=== PATIENT | male | born 1955 | race Caucasian/White ===

== ENCOUNTER 2017-09-15 15:59 | Inpatient (IN) | payer BC, MEDICARE ==
[~2017-09-15] VITALS: Ht 177.8 cm; Wt 66.2 kg
--- NOTE | 2017-09-15 16:50 | EKG ---
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
[2017-09-15 17:14] LABS: BASO % 0 % (0-3); EOS # 0.2 x10^3/uL (0.0-0.7); EOS % 2 % (0-3); HEMATOCRIT 42.3 % (39.0-53.0); HEMOGLOBIN 14.3 g/dL (13.0-17.5); LYMPH # 1.1 x10^3/uL (1.0-4.8); LYMPH % 13 % (24-48); MEAN CORPUSCULAR HEMOGLOBIN 29 pg (25-35); MEAN CORPUSCULAR HGB CONC 34 g/dL (31-37); MEAN CORPUSCULAR VOLUME 86 fL (79-100); MONO # 0.6 x10^3/uL (0.0-1.1); MONO % 7 % (0-9); NEUT # 6.8 x10^3uL (1.8-7.7); NEUT % 77 % (31-73); PLATELET COUNT 264 x10^3/uL (140-400); RED BLOOD COUNT 4.92 x10^6/uL (4.30-5.70); RED CELL DISTRIBUTION WIDTH 13.9 % (11.5-14.5); WHITE BLOOD COUNT 8.7 x10^3/uL (4.0-11.0)
[2017-09-15 17:27] LABS: ALBUMIN 4.1 g/dL (3.4-5.0); ALBUMIN/GLOBULIN RATIO 1.2 (1.0-1.7); CALCIUM 8.7 mg/dL (8.5-10.1); CREATININE 1.1 mg/dL (0.7-1.3); GFR 68.3; MAGNESIUM 2.3 mg/dL (1.8-2.4); TOTAL BILIRUBIN 0.4 mg/dL (0.2-1.0); TOTAL PROTEIN 7.4 g/dL (6.4-8.2)
[2017-09-15 17:43] LABS: BACTERIA,URINE 0 /HPF (0-FEW); BILIRUBIN,URINE NEG (NEG); CLARITY,URINE CLEAR; COLOR,URINE YELLOW; GLUCOSE,URINE NEG (NEG); NITRITE,URINE NEG (NEG); RBC,URINE OCC /HPF (0-2); SQUAMOUS EPITHELIAL CELL,UR FEW /LPF; UROBILINOGEN,URINE 1 mg/dL (0.2 mg/dL); WBC,URINE OCC /HPF (0-4)
--- NOTE | 2017-09-15 18:08 | PHYS DOC ---
Past History Past Medical History: Anxiety, Other Past Surgical History: Tonsillectomy Alcohol Use: None Drug Use: None Adult General Chief Complaint Chief Complaint: PSYCH EVALUATION HPI HPI Patient is a 62 year old male who presents with psychiatric problem. Patient has history of progressive aphasia and Alzheimer's dementia, recently with increased aggressive behaviors towards self. Repeatedly hitting his head with his own hands. Requiring significant intervention and monitoring on a one-to- one basis at memory care unit. Recent hospital admissions to [facility]. Here with today who is giving history. Review of Systems Review of Systems Constitutional: Denies fever or chills Eyes: Denies change in visual acuity HENT: Denies nasal congestion or sore throat Respiratory: Denies cough or shortness of breath Cardiovascular: Denies chest pain or edema GI: Denies abdominal pain, nausea, vomiting, bloody stools or diarrhea : Denies dysuria or hematuria Musculoskeletal: Denies back pain or joint pain Integument: Denies rash or skin lesions Neurologic: Denies headache, focal weakness or sensory changes All other systems were reviewed and found to be within normal limits, except as documented in this note. Physical Exam Physical Exam Constitutional: Well developed, well nourished, no acute distress, non-toxic appearance. HENT: Normocephalic, atraumatic, bilateral external ears normal, oropharynx moist, nose normal. Eyes: PERRLA, EOMI, conjunctiva normal, no discharge. Neck: supple, no stridor. Cardiovascular: RRR, no murmurs, no edema. Lungs & Thorax: LCTAB, no wheezing, no respiratory distress. Abdomen: soft, nontender, nondistended. Skin: Warm, dry, no erythema, no rash. Back: No tenderness. Extremities: No tenderness, no edema. Neurologic: Alert, moves all extremities, answers some questions. Psychologic: Affect normal, judgement normal, mood normal. Current Patient Data Vital Signs Vital Signs Date Time Temp Pulse Resp B/P (MAP) Pulse Ox O2 Delivery O2 Flow Rate FiO2 09/15/17 16:32 97.8 75 22 99 Room Air Lab Results Laboratory Tests Test 09/15/17 16:50 White Blood Count 8.7 x10^3/uL (4.0-11.0) Red Blood Count 4.92 x10^6/uL (4.30-5.70) Hemoglobin 14.3 g/dL (13.0-17.5) Hematocrit 42.3 % (39.0-53.0) Mean Corpuscular Volume 86 fL (79-100) Mean Corpuscular Hemoglobin 29 pg (25-35) Mean Corpuscular Hemoglobin Concent 34 g/dL (31-37) Red Cell Distribution Width 13.9 % (11.5-14.5) Platelet Count 264 x10^3/uL (140-400) Neutrophils (%) (Auto) 77 % (31-73) H Lymphocytes (%) (Auto) 13 % (24-48) L Monocytes (%) (Auto) 7 % (0-9) Eosinophils (%) (Auto) 2 % (0-3) Basophils (%) (Auto) 0 % (0-3) Neutrophils # (Auto) 6.8 x10^3uL (1.8-7.7) Lymphocytes # (Auto) 1.1 x10^3/uL (1.0-4.8) Monocytes # (Auto) 0.6 x10^3/uL (0.0-1.1) Eosinophils # (Auto) 0.2 x10^3/uL (0.0-0.7) Basophils # (Auto) 0.0 x10^3/uL (0.0-0.2) Urine Collection Type Unknown Urine Color Yellow Urine Clarity Clear Urine pH 6.5 Urine Specific [place] 1.025 Urine Protein Neg (NEG-TRACE) Urine Glucose (UA) Neg mg/dL (NEG) Urine Ketones (Stick) Neg mg/dL (NEG) Urine Blood Neg (NEG) Urine Nitrite Neg (NEG) Urine Bilirubin Neg (NEG) Urine Urobilinogen Dipstick 1 mg/dL (0.2 mg/dL) Urine Leukocyte Esterase Neg (NEG) Urine RBC Occ /HPF (0-2) Urine WBC Occ /HPF (0-4) Urine Squamous Epithelial Cells Few /LPF Urine Bacteria 0 /HPF (0-FEW) Urine Mucus Mod /LPF Sodium Level 143 mmol/L (136-145) Potassium Level 4.0 mmol/L (3.5-5.1) Chloride Level 104 mmol/L (98-107) Carbon Dioxide Level 32 mmol/L (21-32) Anion Gap 7 (6-14) Blood Urea Nitrogen 13 mg/dL (8-26) Creatinine 1.1 mg/dL (0.7-1.3) Estimated GFR (Cockcroft-Gault) 68.3 BUN/Creatinine Ratio 12 (6-20) Glucose Level 90 mg/dL (70-99) Calcium Level 8.7 mg/dL (8.5-10.1) Magnesium Level 2.3 mg/dL (1.8-2.4) Total Bilirubin 0.4 mg/dL (0.2-1.0) Aspartate Amino Transferase (AST) 18 U/L (15-37) Alanine Aminotransferase (ALT) 19 U/L (16-63) Alkaline Phosphatase 91 U/L (46-116) Total Protein 7.4 g/dL (6.4-8.2) Albumin 4.1 g/dL (3.4-5.0) Albumin/Globulin Ratio 1.2 (1.0-1.7) EKG EKG Interpreted by me: Normal sinus rhythm rate 74, no acute ST or T wave changes, normal intervals, no ectopy.[] Radiology/Procedures Radiology/Procedures [] Course & Med Decision Making Course & Med Decision Making Pertinent Labs and Imaging studies reviewed. (See chart for details) The patient presents with psych problem. Medically stable, no acute complaints. Labs as above. [facility] accepted for geriatric psych admission. Patient to be transferred to geriatric unit. The patient is in stable condition at this time. [] Dragon Disclaimer Dragon Disclaimer This electronic medical record was generated, in whole or in part, using a voice recognition dictation system. Departure Departure: Impression: Primary Impression: Dementia with aggressive behavior Disposition: 65 XFER TO PSYCH HOSP/UNIT Condition: GUARDED Referrals: KHRIS FERMIN MD (PCP) JOEY THOMAS MD Sep 15, 2017 18:08
--- NOTE | 2017-09-15 19:56 | PDOC ---
Exam Note: Gerhard Note: Please also refer to the separate dictated note~for this date of service dictated separately.~Patient seen individually. Discussed the patient with Nursing staff reviewed the chart.~Reviewed interim history and current functioning. Reviewed vital signs,~Labs/ Radiology~and current medications noted below. Continue current treatment with the changes noted in the dictated addendum note Assessment: Vital Signs: Vital Signs Date Time Temp Pulse Resp B/P (MAP) Pulse Ox O2 Delivery O2 Flow Rate FiO2 09/15/17 19:30 78 20 120/78 (92) 97 Room Air 09/15/17 16:32 97.8 Labs: Laboratory Tests Test 09/15/17 16:50 White Blood Count 8.7 x10^3/uL (4.0-11.0) Red Blood Count 4.92 x10^6/uL (4.30-5.70) Hemoglobin 14.3 g/dL (13.0-17.5) Hematocrit 42.3 % (39.0-53.0) Mean Corpuscular Volume 86 fL (79-100) Mean Corpuscular Hemoglobin 29 pg (25-35) Mean Corpuscular Hemoglobin Concent 34 g/dL (31-37) Red Cell Distribution Width 13.9 % (11.5-14.5) Platelet Count 264 x10^3/uL (140-400) Neutrophils (%) (Auto) 77 % (31-73) H Lymphocytes (%) (Auto) 13 % (24-48) L Monocytes (%) (Auto) 7 % (0-9) Eosinophils (%) (Auto) 2 % (0-3) Basophils (%) (Auto) 0 % (0-3) Neutrophils # (Auto) 6.8 x10^3uL (1.8-7.7) Lymphocytes # (Auto) 1.1 x10^3/uL (1.0-4.8) Monocytes # (Auto) 0.6 x10^3/uL (0.0-1.1) Eosinophils # (Auto) 0.2 x10^3/uL (0.0-0.7) Basophils # (Auto) 0.0 x10^3/uL (0.0-0.2) Urine Collection Type Unknown Urine Color Yellow Urine Clarity Clear Urine pH 6.5 Urine Specific [place] 1.025 Urine Protein Neg (NEG-TRACE) Urine Glucose (UA) Neg mg/dL (NEG) Urine Ketones (Stick) Neg mg/dL (NEG) Urine Blood Neg (NEG) Urine Nitrite Neg (NEG) Urine Bilirubin Neg (NEG) Urine Urobilinogen Dipstick 1 mg/dL (0.2 mg/dL) Urine Leukocyte Esterase Neg (NEG) Urine RBC Occ /HPF (0-2) Urine WBC Occ /HPF (0-4) Urine Squamous Epithelial Cells Few /LPF Urine Bacteria 0 /HPF (0-FEW) Urine Mucus Mod /LPF Sodium Level 143 mmol/L (136-145) Potassium Level 4.0 mmol/L (3.5-5.1) Chloride Level 104 mmol/L (98-107) Carbon Dioxide Level 32 mmol/L (21-32) Anion Gap 7 (6-14) Blood Urea Nitrogen 13 mg/dL (8-26) Creatinine 1.1 mg/dL (0.7-1.3) Estimated GFR (Cockcroft-Gault) 68.3 BUN/Creatinine Ratio 12 (6-20) Glucose Level 90 mg/dL (70-99) Calcium Level 8.7 mg/dL (8.5-10.1) Magnesium Level 2.3 mg/dL (1.8-2.4) Total Bilirubin 0.4 mg/dL (0.2-1.0) Aspartate Amino Transferase (AST) 18 U/L (15-37) Alanine Aminotransferase (ALT) 19 U/L (16-63) Alkaline Phosphatase 91 U/L (46-116) Total Protein 7.4 g/dL (6.4-8.2) Albumin 4.1 g/dL (3.4-5.0) Albumin/Globulin Ratio 1.2 (1.0-1.7) Current Medications: I have reviewed the current psychotropics carefully including drug interactions. Risk benefit ratio favors no change other than as noted in my dictated progress note. Diagnosis: Problems: (1) Dementia with aggressive behavior KARSON DOWELL MD Sep 15, 2017 19:56
[2017-09-15] MEDS ORDERED: QUET400T4 PO (20:07)
[2017-09-15] MEDS ORDERED: SERT20OR PO (20:07)
[2017-09-15] MEDS ORDERED: TRAZ50TA15 PO ×3 (20:07)
[2017-09-15] MEDS ORDERED: QUET50TA5 PO (20:07)
[2017-09-15] MEDS ORDERED: traZODone 50 MG TABLET. PO PRN (20:15)
[2017-09-15] MEDS: traZODone 50 MG TABLET. PO SCH (21:06)
[2017-09-15] MEDS: QUEtiapine 100 MG TABLET. PO SCH (21:06)
[2017-09-15 22:46] VITALS: BP 128/67
[2017-09-16 06:08] VITALS: BP 98/49
[2017-09-16] MEDS ORDERED: ACETAMINOPHEN 325 MG TABLET PO PRN (08:00)
[2017-09-16] MEDS ORDERED: MAG HYDROX/AL HYDROX/SIMETH 30 ML ORAL.SUSP PO PRN (08:00)
[2017-09-16] MEDS: QUEtiapine 50 MG TABLET. PO SCH (08:00)
[2017-09-16] MEDS ORDERED: MAGNESIUM HYDROXIDE 2,400 MG/30 ML ORAL.SUSP. PO PRN (08:00)
[2017-09-16] MEDS: traZODone 50 MG TABLET. PO SCH ×4 (08:02→19:08)
[2017-09-16] MEDS ORDERED: SERTRALINE 100 MG TABLET. PO SCH (09:00)
[2017-09-16] MEDS: hydrOXYzine PAMOATE 25 MG CAPSULE PO PRN (09:43)
[2017-09-16 14:17] LABS: THYROID STIM HORMONE (TSH) 1.39 uIU/mL (0.358-3.740)
--- NOTE | 2017-09-16 15:01 | HP ---
ADMIT DATE: 09/15/2017 REASON FOR ADMISSION TO SENIOR BEHAVIORAL UNIT: This is a 62-year-old male who was just hospitalized on the Adult Psych Unit where he was sent from [facility]. He has been self-destructive, hitting his head, very anxious, tried to smother himself with a pillow, somewhat fixated with his bowels and his bladder and just is not able to process information the people are giving him. At the Adult Psych, they did try to adjust his trazodone, which was not effective. Apparently, also the nursing facility where he was going to go was not going to take him. PAST MEDICAL HISTORY: He has a cholesteatoma, depression, H. pylori, hallucinations, memory loss, high cholesterol. He is carrying a diagnosis of Alzheimer's dementia; logopenic variant; self-harming behavior; expressive and receptive aphasia. He had an MRI showing moderate atrophy in the frontotemporal lobes with a focal area of FLAIR the lateral right temporal lobe. Neurology felt like this was not significant. HOME MEDICATIONS: Reviewed. His current meds include lorazepam, quetiapine, Zoloft and trazodone. SOCIAL HISTORY: . No children. He has a Master's in health management and a bachelor's in accounting. 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 Diagnosis of Alzheimer's this is from I believe 2007. REVIEW OF SYSTEMS: The patient unable to answer questions. OBJECTIVE: VITAL SIGNS: Blood pressure 98/49, temperature 99, pulse 90, respirations 18, pulse ox 98% on room air. Height 70 inches, weight 146 pounds. GENERAL: A 62-year-old, in no acute distress. The patient is constantly talking. He is really very restless and unable to relax. He sits very briefly and then has been seen seeing pacing on the unit. HEENT: His hearing is normal. His eyes are clear. I could not assess his vision. When I held up at my hands, he said there were 7 fingers. Nose is patent. Throat clear. Tongue midline. NECK: Supple. LUNGS: Clear. CARDIOVASCULAR: Mildly tachycardic, regular rhythm and rate. ABDOMEN: Soft, nontender. EXTREMITIES: Without edema. NEUROLOGIC: Mental state, speech is word salad. Mental status is confused, cannot express himself and does not appear to be able to comprehend what words that are being spoken to him. Seems quite obsessed with his bowels and his bladder. LABORATORY DATA: Unremarkable. Chemistry unremarkable. Urinalysis is normal. Other studies are pending. IMAGING: KUB done because concerns about his bowel has not been overread but did not notice a whole lot of stool there. ASSESSMENT: 1. Alzheimer dementia, like logopenic variant, with self-harming behavior and expressive and receptive aphasia. 2. Depression. 3. History of hallucinations and memory loss. 4. Hypercholesterolemia. PLAN: Follow along with Dr. Boykin. Treat his medical conditions and we will treat his constipation if the KUB was read out as such. ZENAIDA WARD DO DR: SERENA/zia JOB#: [id number] / [id number]
--- NOTE | 2017-09-16 15:01 | RAD ---
KUB, 09/16/2017: History: Constipation. There is is gas and stool in scattered portions of the colon a nonspecific pattern. There is no evidence of organomegaly. Lower pelvic calcifications are probably phleboliths. IMPRESSION: No acute abdominal abnormality is detected.
[2017-09-16 16:29] VITALS: BP 134/74
[2017-09-16] MEDS: QUEtiapine 100 MG TABLET. PO SCH (19:08)
--- NOTE | 2017-09-16 19:57 | PDOC ---
Exam Note: Gerhard Note: Please also refer to the separate dictated note~for this date of service dictated separately.~Patient seen individually. Discussed the patient with Nursing staff reviewed the chart.~Reviewed interim history and current functioning. Reviewed vital signs,~Labs/ Radiology~and current medications noted below. Continue current treatment with the changes noted in the dictated addendum note Assessment: Vital Signs: Vital Signs Date Time Temp Pulse Resp B/P (MAP) Pulse Ox O2 Delivery O2 Flow Rate FiO2 09/16/17 16:29 98.4 96 18 134/74 (94) 97 09/15/17 22:46 Room Air I&O Intake and Output 09/16/17 07:00 Intake Total 240 ml Balance 240 ml Intake Oral 240 ml Labs: Laboratory Tests Test 09/15/17 21:15 Iron Level 63 ug/dL (65-175) L Total Iron Binding Capacity 271 ug/dL (250-450) Iron Saturation 23 % (15-34) Vitamin B12 Level 593 pg/mL (247-911) 25-Hydroxy Vitamin D Total 18.9 ng/mL (30-100) L Current Medications: Meds: Current Medications Quetiapine Fumarate (SEROquel) 50 mg DAILY PO Last administered on 09/16/17at 08 :00; Start 09/16/17 at 09:00 Sertraline HCl (Zoloft) 100 mg DAILY PO Last administered on 09/16/17at 08:02; Start 09/16/17 at 09:00; Stop 09/16/17 at 19:21; Status DC Trazodone HCl (Desyrel) 25 mg TIDWMEALS PO Last administered on 09/16/17at 17:17 ; Start 09/16/17 at 08:00 Trazodone HCl (Desyrel) 50 mg PRN QHS PRN PO INSOMNIA; Start 09/15/17 at 20:15 Trazodone HCl (Desyrel) 50 mg QHS PO Last administered on 09/16/17at 19:08; Start 09/15/17 at 21:00 Quetiapine Fumarate (SEROquel) 400 mg HS PO Last administered on 09/16/17at 19: 08; Start 09/15/17 at 21:00 Olanzapine (ZyPREXA ZYDIS) 2.5 mg PRN Q2HR PRN PO PSYCHOSIS Last administered on 09/16/17at 08:26; Start 09/15/17 at 21:00 Hydroxyzine Pamoate (Vistaril) 25 mg PRN Q2HR PRN PO Anxiety/Agitation Last administered on 09/16/17at 09:43; Start 09/15/17 at 22:00 Al Hydroxide/Mg Hydroxide (Mylanta Plus Xs) 30 ml PRN Q2HR PRN PO DYSPEPSIA; Start 09/16/17 at 08:00 Magnesium Hydroxide (Milk Of Magnesia) 2,400 mg PRN DAILY PRN PO CONSTIPATION Last administered on 09/16/17at 08:03; Start 09/16/17 at 08:00 Acetaminophen (Tylenol) 650 mg PRN Q6HRS PRN PO PAIN / TEMP; Start 09/16/17 at 08:00 Fluvoxamine Maleate (Luvox) 25 mg HS PO ; Start 09/16/17 at 21:00; Stop at 00:00 Fluvoxamine Maleate (Luvox) 50 mg HS PO ; Start 09/18/17 at 21:00 Active Scripts Active Reported Trazodone Hcl 50 Mg Tablet 50 Mg PO PRN QHS PRN Trazodone Hcl 50 Mg Tablet 50 Mg PO QHS Trazodone Hcl 50 Mg Tablet 25 Mg PO TIDWMEALS Seroquel (Quetiapine Fumarate) 400 Mg Tablet 400 Mg PO QHS Seroquel (Quetiapine Fumarate) 50 Mg Tablet 50 Mg PO DAILY I have reviewed the current psychotropics carefully including drug interactions. Risk benefit ratio favors no change other than as noted in my dictated progress note. Diagnosis: Problems: (1) Dementia with aggressive behavior (2) Anxiety disorder (3) Dementia in Alzheimer's disease with delusions (4) Dementia in Alzheimer's disease with depression (5) Dementia, vascular, with delusions (6) Dementia, vascular, with depression (7) Impulse control disorder KARSON DOWELL MD Sep 16, 2017 19:57
[2017-09-16 20:09] LABS: T3 TOTAL 77 ng/dL (71-180); THYROXINE 4.9 ug/dL (4.5-12.0)
[2017-09-17 05:46] VITALS: BP 108/58
[2017-09-17] MEDS: QUEtiapine 50 MG TABLET. PO SCH (08:06)
[2017-09-17] MEDS: traZODone 50 MG TABLET. PO SCH ×4 (08:06→19:46)
--- NOTE | 2017-09-17 12:09 | HP ---
ADMIT DATE: 09/16/2017 This is a late entry for 09/16/2017 and covers elements not covered in my initial note of 09/16/2017. I with the patient evening of 09/16/2017 and had a very lengthy telephone conversation with the patient's , Adeline [phone] to gather background history, review of all his past psychotropics, details of his recent hospitalization on psychiatry service at the [facility], treatment recommendations and expectations prognosis at great length. IDENTIFYING DATA: The patient is a 62-year-old male who is referred to us from [facility] by Dr. Casey Castillo, his primary care physician, and Dr. Reeves, psychiatrist on account of worsening confusion, marked psychotic symptoms, believing that his hands are not his and that his right hand is called Chad and left is called Mario and they are beating him up. Reportedly, the patient will then punch himself in the face. He attempted to smother himself with a pillow. He was recently an inpatient at Psychiatry, has failed all of this, was at [facility] just very briefly before being referred to us. CHIEF COMPLAINT: "No" The patient is extremely disorganized, confused, unable to give any relevant history." HISTORY OF PRESENT ILLNESS: The patient has a history of early onset Alzheimer's with delusion, depression, behavioral disturbance. Reportedly, has been tried on various psychotropics including various antipsychotics, scheduled trazodone and currently is on a combination of Seroquel, scheduled trazodone, Zoloft and none of this is effective. He is extremely psychotic, agitated, hits and slaps himself, unmanageable at the facility. No clear history of bipolar disorder. No active suicidal or homicidal ideation. PAST PSYCHIATRIC HISTORY: As above. PAST MEDICAL HISTORY: In addition to early onset Alzheimer's, has a history of primary progressive aphasia, H. pylori infection, hyperlipidemia. Diet: Regular. Accu-Cheks: None. Takes his medications whole. Ambulates independently. UA negative on 09/15/2017. CODE STATUS: DNR. DRUG ALLERGIES: Negative. CURRENT PSYCHOTROPICS: Seroquel 50 mg daily, 400 mg at bedtime; trazodone 25 mg t.i.d. with meals, 50 mg at bedtime, may repeat x 1 for insomnia; Zoloft 100 mg a day, Zyprexa p.r.n., Atarax p.r.n. FAMILY HISTORY: Positive for early onset Alzheimer's. SOCIAL HISTORY: The patient is . His is extremely supportive and knowledgeable about his care. No alcohol or drug abuse, physical, sexual or elder abuse history is noted. Not known to be a perpetrator. MENTAL STATUS EXAMINATION: The patient was seen individually evening of 09/16/2017, is oriented to himself, rambling in his speech, hitting himself in the head at times, quite compulsive, obsessive at times, delusional, psychotic. Insight, judgment, recent and remote memory, attention, concentration, fund of knowledge poor, consistent with his diagnosis. LABORATORY DATA: Major neurocognitive disorder, Alzheimer, vascular with depression, delusion, behavioral disturbance; anxiety disorder, unspecified; impulse control disorder, unspecified. Rest as above. PLAN: Admit to Geropsychiatry Unit at [facility]. I will see the patient daily individually from a psychiatric standpoint, medical followup per Dr. Simpson/Dr. Pinto. I have discussed with the patient's and we will change the Zoloft to Luvox 25 mg p.o. at bedtime for his compulsive hitting himself. Initiate 25 mg at bedtime, increase to 50 mg a day. Consider Depakote as a mood stabilizer. May adjust the Seroquel further depending on the response for the initial interventions. Discussed with social service staff on a couple of occasions as well. MAN Jose G DOWELL MD DR: LAZARO/zia JOB#: [id number] / [id number]
[2017-09-17] MEDS ORDERED: CHOLECALCIFEROL (VITAMIN D3) 50,000 UNIT CAPSULE PO SCH (13:00)
[2017-09-17 16:42] VITALS: BP 118/61
[2017-09-17] MEDS: PRENATAL MULTIVITAMIN TABLET. PO SCH (17:18)
[2017-09-17] MEDS: QUEtiapine 100 MG TABLET. PO SCH (19:46)
[2017-09-17] MEDS: ATORVASTATIN CALCIUM 20 MG TABLET PO SCH (19:47)
[2017-09-17] MEDS: hydrOXYzine PAMOATE 25 MG CAPSULE PO PRN (19:48)
--- NOTE | 2017-09-17 19:56 | PDOC ---
Exam Note: Gerhard Note: Please also refer to the separate dictated note~for this date of service dictated separately.~Patient seen individually. Discussed the patient with Nursing staff reviewed the chart.~Reviewed interim history and current functioning. Reviewed vital signs,~Labs/ Radiology~and current medications noted below. Continue current treatment with the changes noted in the dictated addendum note Assessment: Vital Signs: Vital Signs Date Time Temp Pulse Resp B/P (MAP) Pulse Ox O2 Delivery O2 Flow Rate FiO2 09/17/17 16:42 98.8 105 18 118/61 (80) 99 09/17/17 05:46 Room Air I&O Intake and Output 09/17/17 07:00 Intake Total 600 ml Balance 600 ml Intake Oral 600 ml # Voids 1 # Bowel Movements 1 Current Medications: Meds: Current Medications Quetiapine Fumarate (SEROquel) 50 mg DAILY PO Last administered on 09/17/17at 08 :06; Start 09/16/17 at 09:00 Sertraline HCl (Zoloft) 100 mg DAILY PO Last administered on 09/16/17at 08:02; Start 09/16/17 at 09:00; Stop 09/16/17 at 19:21; Status DC Trazodone HCl (Desyrel) 25 mg TIDWMEALS PO Last administered on 09/17/17at 17:18 ; Start 09/16/17 at 08:00 Trazodone HCl (Desyrel) 50 mg PRN QHS PRN PO INSOMNIA; Start 09/15/17 at 20:15 Trazodone HCl (Desyrel) 50 mg QHS PO Last administered on 09/17/17at 19:46; Start 09/15/17 at 21:00 Quetiapine Fumarate (SEROquel) 400 mg HS PO Last administered on 09/17/17at 19: 46; Start 09/15/17 at 21:00 Olanzapine (ZyPREXA ZYDIS) 2.5 mg PRN Q2HR PRN PO PSYCHOSIS Last administered on 09/17/17at 13:46; Start 09/15/17 at 21:00 Hydroxyzine Pamoate (Vistaril) 25 mg PRN Q2HR PRN PO Anxiety/Agitation Last administered on 09/17/17at 19:48; Start 09/15/17 at 22:00 Al Hydroxide/Mg Hydroxide (Mylanta Plus Xs) 30 ml PRN Q2HR PRN PO DYSPEPSIA; Start 09/16/17 at 08:00 Magnesium Hydroxide (Milk Of Magnesia) 2,400 mg PRN DAILY PRN PO CONSTIPATION Last administered on 09/16/17at 08:03; Start 09/16/17 at 08:00 Acetaminophen (Tylenol) 650 mg PRN Q6HRS PRN PO PAIN / TEMP; Start 09/16/17 at 08:00 Fluvoxamine Maleate (Luvox) 25 mg HS PO Last administered on 09/17/17at 19:46; Start 09/16/17 at 21:00; Stop 09/18/17 at 00:00 Fluvoxamine Maleate (Luvox) 50 mg HS PO ; Start 09/18/17 at 21:00 Vitamin D (Vitamin D3) 50,000 unit WEEKLY PO Last administered on 09/17/17at 12: 54; Start 09/17/17 at 13:00 Prenat Multivit/ Space Control Supervisor/Iron/Folic Ac (Multivitamin ) 1 tab DAILYBFRSUP PO Last administered on 09/17/17at 17:18; Start 09/17/17 at 17:00 Atorvastatin Calcium (Lipitor) 20 mg QHS PO Last administered on 09/17/17at 19: 47; Start 09/17/17 at 21:00 Active Scripts Active Reported Trazodone Hcl 50 Mg Tablet 50 Mg PO PRN QHS PRN Trazodone Hcl 50 Mg Tablet 50 Mg PO QHS Trazodone Hcl 50 Mg Tablet 25 Mg PO TIDWMEALS Seroquel (Quetiapine Fumarate) 400 Mg Tablet 400 Mg PO QHS Seroquel (Quetiapine Fumarate) 50 Mg Tablet 50 Mg PO DAILY I have reviewed the current psychotropics carefully including drug interactions. Risk benefit ratio favors no change other than as noted in my dictated progress note. Diagnosis: Problems: (1) Dementia with aggressive behavior (2) Anxiety disorder (3) Dementia in Alzheimer's disease with delusions (4) Dementia in Alzheimer's disease with depression (5) Dementia, vascular, with delusions (6) Dementia, vascular, with depression (7) Impulse control disorder KARSON DOWELL MD Sep 17, 2017 19:56
[2017-09-18 06:21] VITALS: BP 113/44
[2017-09-18] MEDS: traZODone 50 MG TABLET. PO SCH ×4 (07:58→19:57)
[2017-09-18] MEDS: QUEtiapine 50 MG TABLET. PO SCH (07:58)
[2017-09-18] MEDS: hydrOXYzine PAMOATE 25 MG CAPSULE PO PRN (16:13)
[2017-09-18] MEDS: PRENATAL MULTIVITAMIN TABLET. PO SCH (16:13)
[2017-09-18 16:23] VITALS: BP 116/69
--- NOTE | 2017-09-18 19:48 | PDOC ---
Exam Note: Gerhard Note: Please also refer to the separate dictated note~for this date of service dictated separately.~Patient seen individually. Discussed the patient with Nursing staff reviewed the chart.~Reviewed interim history and current functioning. Reviewed vital signs,~Labs/ Radiology~and current medications noted below. Continue current treatment with the changes noted in the dictated addendum note Assessment: Vital Signs: Vital Signs Date Time Temp Pulse Resp B/P (MAP) Pulse Ox O2 Delivery O2 Flow Rate FiO2 09/18/17 16:23 98.6 112 18 116/69 (85) 97 Room Air I&O Intake and Output 09/18/17 07:00 Intake Total 840 ml Balance 840 ml Intake Oral 840 ml # Voids 1 Current Medications: Meds: Current Medications Quetiapine Fumarate (SEROquel) 50 mg DAILY PO Last administered on 09/18/17at 07 :58; Start 09/16/17 at 09:00 Sertraline HCl (Zoloft) 100 mg DAILY PO Last administered on 09/16/17at 08:02; Start 09/16/17 at 09:00; Stop 09/16/17 at 19:21; Status DC Trazodone HCl (Desyrel) 25 mg TIDWMEALS PO Last administered on 09/18/17at 16:13 ; Start 09/16/17 at 08:00 Trazodone HCl (Desyrel) 50 mg PRN QHS PRN PO INSOMNIA; Start 09/15/17 at 20:15 Trazodone HCl (Desyrel) 50 mg QHS PO Last administered on 09/17/17at 19:46; Start 09/15/17 at 21:00 Quetiapine Fumarate (SEROquel) 400 mg HS PO Last administered on 09/17/17at 19: 46; Start 09/15/17 at 21:00 Olanzapine (ZyPREXA ZYDIS) 2.5 mg PRN Q2HR PRN PO PSYCHOSIS Last administered on 09/17/17at 13:46; Start 09/15/17 at 21:00 Hydroxyzine Pamoate (Vistaril) 25 mg PRN Q2HR PRN PO Anxiety/Agitation Last administered on 09/18/17at 16:13; Start 09/15/17 at 22:00 Al Hydroxide/Mg Hydroxide (Mylanta Plus Xs) 30 ml PRN Q2HR PRN PO DYSPEPSIA; Start 09/16/17 at 08:00 Magnesium Hydroxide (Milk Of Magnesia) 2,400 mg PRN DAILY PRN PO CONSTIPATION Last administered on 09/16/17at 08:03; Start 09/16/17 at 08:00 Acetaminophen (Tylenol) 650 mg PRN Q6HRS PRN PO PAIN / TEMP; Start 09/16/17 at 08:00 Fluvoxamine Maleate (Luvox) 25 mg HS PO Last administered on 09/17/17at 19:46; Start 09/16/17 at 21:00; Stop 09/18/17 at 00:00; Status DC Fluvoxamine Maleate (Luvox) 50 mg HS PO ; Start 09/18/17 at 21:00 Vitamin D (Vitamin D3) 50,000 unit WEEKLY PO Last administered on 09/17/17at 12: 54; Start 09/17/17 at 13:00 Prenat Multivit/ [place]/Iron/Folic Ac (Multivitamin ) 1 tab DAILYBFRSUP PO Last administered on 09/18/17at 16:13; Start 09/17/17 at 17:00 Atorvastatin Calcium (Lipitor) 20 mg QHS PO Last administered on 09/17/17at 19: 47; Start 09/17/17 at 21:00 Divalproex Sodium (Depakote Er) 500 mg QHS PO ; Start 09/18/17 at 21:00 Active Scripts Active Reported Trazodone Hcl 50 Mg Tablet 50 Mg PO PRN QHS PRN Trazodone Hcl 50 Mg Tablet 50 Mg PO QHS Trazodone Hcl 50 Mg Tablet 25 Mg PO TIDWMEALS Seroquel (Quetiapine Fumarate) 400 Mg Tablet 400 Mg PO QHS Seroquel (Quetiapine Fumarate) 50 Mg Tablet 50 Mg PO DAILY I have reviewed the current psychotropics carefully including drug interactions. Risk benefit ratio favors no change other than as noted in my dictated progress note. Diagnosis: Problems: (1) Dementia with aggressive behavior (2) Anxiety disorder (3) Dementia in Alzheimer's disease with delusions (4) Dementia in Alzheimer's disease with depression (5) Dementia, vascular, with delusions (6) Dementia, vascular, with depression (7) Impulse control disorder KARSON DOWELL MD Sep 18, 2017 19:48
[2017-09-18] MEDS: QUEtiapine 100 MG TABLET. PO SCH (19:57)
[2017-09-18] MEDS: ATORVASTATIN CALCIUM 20 MG TABLET PO SCH (19:57)
[2017-09-18] MEDS: DIVALPROEX ER 500 MG TAB.ER.24H PO SCH (20:01)
[2017-09-19] MEDS ORDERED: PREN-48 PO (03:59)
[2017-09-19] MEDS ORDERED: DIVA500T4 PO (04:00)
[2017-09-19] MEDS ORDERED: CHOL500050 PO (04:02)
[2017-09-19] MEDS ORDERED: FLUV50TA2 PO (04:04)
[2017-09-19] MEDS ORDERED: HYDR25CA75 PO (04:05)
[2017-09-19] MEDS ORDERED: OLAN5TAB5 PO (04:06)
[2017-09-19] MEDS ORDERED: ATOR20TA58 PO (04:09)
[2017-09-19 06:15] VITALS: BP 106/67
[2017-09-19] MEDS: QUEtiapine 50 MG TABLET. PO SCH (07:58)
[2017-09-19] MEDS: traZODone 50 MG TABLET. PO SCH ×4 (07:59→20:15)
[2017-09-19] MEDS ORDERED: ACET650S19 PO (11:38)
[2017-09-19] MEDS ORDERED: MAGN2400 PO (11:41)
[2017-09-19] MEDS ORDERED: MAG355OR12 PO (11:41)
[2017-09-19 16:00] VITALS: BP 98/68
[2017-09-19] MEDS: PRENATAL MULTIVITAMIN TABLET. PO SCH (18:25)
--- NOTE | 2017-09-19 19:36 | PDOC ---
Exam Note: Gerhard Note: Please also refer to the separate dictated note~for this date of service dictated separately.~Patient seen individually. Discussed the patient with Nursing staff reviewed the chart.~Reviewed interim history and current functioning. Reviewed vital signs,~Labs/ Radiology~and current medications noted below. Continue current treatment with the changes noted in the dictated addendum note Assessment: Vital Signs: Vital Signs Date Time Temp Pulse Resp B/P (MAP) Pulse Ox O2 Delivery O2 Flow Rate FiO2 09/19/17 16:00 98.6 80 19 98/68 (78) 99 09/18/17 16:23 Room Air I&O Intake and Output 09/19/17 07:00 Intake Total 726 ml Balance 726 ml Intake Oral 726 ml # Voids 1 Current Medications: Meds: Current Medications Quetiapine Fumarate (SEROquel) 50 mg DAILY PO Last administered on 09/19/17at 07 :58; Start 09/16/17 at 09:00 Sertraline HCl (Zoloft) 100 mg DAILY PO Last administered on 09/16/17at 08:02; Start 09/16/17 at 09:00; Stop 09/16/17 at 19:21; Status DC Trazodone HCl (Desyrel) 25 mg TIDWMEALS PO Last administered on 09/19/17at 18:25 ; Start 09/16/17 at 08:00 Trazodone HCl (Desyrel) 50 mg PRN QHS PRN PO INSOMNIA; Start 09/15/17 at 20:15 Trazodone HCl (Desyrel) 50 mg QHS PO Last administered on 09/18/17at 19:57; Start 09/15/17 at 21:00 Quetiapine Fumarate (SEROquel) 400 mg HS PO Last administered on 09/18/17at 19: 57; Start 09/15/17 at 21:00 Olanzapine (ZyPREXA ZYDIS) 2.5 mg PRN Q2HR PRN PO PSYCHOSIS Last administered on 09/19/17at 13:23; Start 09/15/17 at 21:00 Hydroxyzine Pamoate (Vistaril) 25 mg PRN Q2HR PRN PO Anxiety/Agitation Last administered on 09/18/17at 16:13; Start 09/15/17 at 22:00 Al Hydroxide/Mg Hydroxide (Mylanta Plus Xs) 30 ml PRN Q2HR PRN PO DYSPEPSIA; Start 09/16/17 at 08:00 Magnesium Hydroxide (Milk Of Magnesia) 2,400 mg PRN DAILY PRN PO CONSTIPATION Last administered on 09/16/17at 08:03; Start 09/16/17 at 08:00 Acetaminophen (Tylenol) 650 mg PRN Q6HRS PRN PO PAIN / TEMP; Start 09/16/17 at 08:00 Fluvoxamine Maleate (Luvox) 25 mg HS PO Last administered on 09/17/17at 19:46; Start 09/16/17 at 21:00; Stop 09/18/17 at 00:00; Status DC Fluvoxamine Maleate (Luvox) 50 mg HS PO Last administered on 09/18/17at 20:01; Start 09/18/17 at 21:00 Vitamin D (Vitamin D3) 50,000 unit WEEKLY PO Last administered on 09/17/17at 12: 54; Start 09/17/17 at 13:00 Prenat Multivit/ [place]/Iron/Folic Ac (Multivitamin ) 1 tab DAILYBFRSUP PO Last administered on 09/19/17at 18:25; Start 09/17/17 at 17:00 Atorvastatin Calcium (Lipitor) 20 mg QHS PO Last administered on 09/18/17at 19: 57; Start 09/17/17 at 21:00 Divalproex Sodium (Depakote Er) 500 mg QHS PO Last administered on 09/18/17at 20 :01; Start 09/18/17 at 21:00 Active Scripts Active Reported Milk Of Magnesia (Magnesium Hydroxide) 2,400 Mg/10 Ml Oral.susp 2,400 Mg PO PRN QHS PRN Maalox Maximum Strength Susp (Mag Hydrox/Al Hydrox/Simeth) 355 Ml Oral.susp 15 Ml PO PRN AFTMEALHC PRN Acetaminophen 650 Mg/20.3 Ml Solution 650 Mg PO PRN Q6HRS PRN Atorvastatin Calcium 20 Mg Tablet 20 Mg PO QHS Zyprexa Zydis (Olanzapine) 5 Mg Tab.rapdis 2.5 Mg PO PRN Q2HR PRN Hydroxyzine Pamoate 25 Mg Capsule 25 Mg PO PRN Q2HR PRN Fluvoxamine Maleate 50 Mg Tablet 1 Tab PO QHS Vitamin D (Cholecalciferol (Vitamin D3)) 50,000 Unit Capsule 50,000 Unit PO WEEKLY Depakote Er (Divalproex Sodium) 500 Mg Tab.er.24h 1 Tab PO HS Vitamin Tablet ( Vit No.124/Iron/FA) 1 Each Tablet 1 Each PO DAILY Zoloft (Sertraline Hcl) 100 Mg Tablet 100 Mg PO DAILY Trazodone Hcl 50 Mg Tablet 50 Mg PO PRN QHS PRN Trazodone Hcl 50 Mg Tablet 50 Mg PO QHS Trazodone Hcl 50 Mg Tablet 25 Mg PO TIDWMEALS Seroquel (Quetiapine Fumarate) 400 Mg Tablet 400 Mg PO QHS Seroquel (Quetiapine Fumarate) 50 Mg Tablet 50 Mg PO DAILY I have reviewed the current psychotropics carefully including drug interactions. Risk benefit ratio favors no change other than as noted in my dictated progress note. Diagnosis: Problems: (1) Dementia with aggressive behavior (2) Anxiety disorder (3) Dementia in Alzheimer's disease with delusions (4) Dementia in Alzheimer's disease with depression (5) Dementia, vascular, with delusions (6) Dementia, vascular, with depression (7) Impulse control disorder KARSON DOWELL MD Sep 19, 2017 19:36
[2017-09-19] MEDS: QUEtiapine 100 MG TABLET. PO SCH (20:15)
[2017-09-19] MEDS: ATORVASTATIN CALCIUM 20 MG TABLET PO SCH (20:15)
[2017-09-19] MEDS: DIVALPROEX ER 500 MG TAB.ER.24H PO SCH (20:15)
--- NOTE | 2017-09-19 21:13 | PN ---
DATE: 09/17/2017 This late entry 09/17/2017 covers elements not covered in my initial note 09/17/2017. Met with the patient evening of 09/17/2017. The patient continues to relate some voices in his head per nursing observation. He was worse in the morning, hitting himself, pacing around, yelling at times, hit himself on the nose at one point. Seems intermittently psychotic. No CV, , pulmonary, eye, ENT system symptoms on review. Reliability poor. MENTAL STATUS EXAM: Oriented to himself. Insight, judgment, recent and remote memory, attention, concentration, fund of knowledge poor, consistent with his diagnosis. Speech rapid, rambling. LABORATORY DATA: Reviewed. IMPRESSION: Major neurocognitive disorder, Alzheimer, vascular with depression, delusion, behavioral disturbance. Rest unchanged. PLAN: Continue Luvox, which is being increased to 50 mg a day. Consider adding Depakote as a mood stabilizer. Continue rest unchanged. MAN Jose G DOWELL MD DR: LAZARO/zia JOB#: [id number] / [id number]
--- NOTE | 2017-09-20 01:35 | PN ---
DATE: 09/18/2017 PSYCHIATRIC PROGRESS NOTE This late entry 09/18/2017 covers elements not covered in my initial note 09/18/2017. SUBJECTIVE: I met with the patient morning of 09/18/2017 and he was staffed at a treatment team meeting with the entire team and the patient's , Priyanka, attended the conference. The patient slept 8 hours after he received Atarax last night. He was agitated around bedtime, hitting himself at times previous evening and early this morning. REVIEW OF SYSTEMS: No CV, , pulmonary, eye, ENT system symptoms on review. Reliability poor. MENTAL STATUS EXAM: Oriented to himself. Insight, judgment, recent and remote memory, attention, concentration, fund of knowledge poor, consistent with his diagnosis mentioned in my initial note. IMPRESSION: Major neurocognitive disorder, Alzheimer, vascular with depression, delusion, OCD. Rest unchanged. PLAN: Start Depakote ER 500 mg p.o. at bedtime. Check CBC, CMP, valproic acid level in 3 days. Maintain Luvox, which is being increased and the rest of his psychotropics including Seroquel. MAN Jose G DOWELL MD DR: LAZARO/zia JOB#: [id number] / [id number]
[2017-09-20] MEDS: QUEtiapine 50 MG TABLET. PO SCH (07:36)
[2017-09-20] MEDS: PRENATAL MULTIVITAMIN TABLET. PO SCH (07:36)
[2017-09-20] MEDS: traZODone 50 MG TABLET. PO SCH ×4 (07:37→19:35)
[2017-09-20 16:08] VITALS: BP 103/52
[2017-09-20] MEDS: ATORVASTATIN CALCIUM 20 MG TABLET PO SCH (19:34)
[2017-09-20] MEDS: QUEtiapine 100 MG TABLET. PO SCH (19:34)
[2017-09-20] MEDS: DIVALPROEX ER 500 MG TAB.ER.24H PO SCH (19:35)
--- NOTE | 2017-09-20 21:56 | PDOC ---
Exam Note: Gerhard Note: Please also refer to the separate dictated note~for this date of service dictated separately.~Patient seen individually. Discussed the patient with Nursing staff reviewed the chart.~Reviewed interim history and current functioning. Reviewed vital signs,~Labs/ Radiology~and current medications noted below. Continue current treatment with the changes noted in the dictated addendum note Assessment: Vital Signs: Vital Signs Date Time Temp Pulse Resp B/P (MAP) Pulse Ox O2 Delivery O2 Flow Rate FiO2 09/20/17 16:08 98.9 81 20 103/52 (69) 99 09/18/17 16:23 Room Air I&O Intake and Output 09/20/17 07:00 Intake Total 1060 ml Balance 1060 ml Intake Oral 1060 ml # Voids 1 Current Medications: Meds: Current Medications Quetiapine Fumarate (SEROquel) 50 mg DAILY PO Last administered on 09/20/17 07 :36; Start 09/16/17 at 09:00 Sertraline HCl (Zoloft) 100 mg DAILY PO Last administered on 09/16/17at 08:02; Start 09/16/17 at 09:00; Stop 09/16/17 at 19:21; Status DC Trazodone HCl (Desyrel) 25 mg TIDWMEALS PO Last administered on 09/20/17 18:13 ; Start 09/16/17 at 08:00 Trazodone HCl (Desyrel) 50 mg PRN QHS PRN PO INSOMNIA; Start 09/15/17 at 20:15 Trazodone HCl (Desyrel) 50 mg QHS PO Last administered on 09/20/17 19:35; Start 09/15/17 at 21:00 Quetiapine Fumarate (SEROquel) 400 mg HS PO Last administered on 09/20/17 19: 34; Start 09/15/17 at 21:00 Olanzapine (ZyPREXA ZYDIS) 2.5 mg PRN Q2HR PRN PO PSYCHOSIS Last administered on 09/20/17 19:38; Start 09/15/17 at 21:00 Hydroxyzine Pamoate (Vistaril) 25 mg PRN Q2HR PRN PO Anxiety/Agitation Last administered on 09/18/17at 16:13; Start 09/15/17 at 22:00 Al Hydroxide/Mg Hydroxide (Mylanta Plus Xs) 30 ml PRN Q2HR PRN PO DYSPEPSIA; Start 09/16/17 at 08:00 Magnesium Hydroxide (Milk Of Magnesia) 2,400 mg PRN DAILY PRN PO CONSTIPATION Last administered on 09/16/17at 08:03; Start 09/16/17 at 08:00 Acetaminophen (Tylenol) 650 mg PRN Q6HRS PRN PO PAIN / TEMP; Start 09/16/17 at 08:00 Fluvoxamine Maleate (Luvox) 25 mg HS PO Last administered on 09/17/17at 19:46; Start 09/16/17 at 21:00; Stop 09/18/17 at 00:00; Status DC Fluvoxamine Maleate (Luvox) 50 mg HS PO Last administered on 09/20/17at 19:34; Start 09/18/17 at 21:00 Vitamin D (Vitamin D3) 50,000 unit WEEKLY PO Last administered on 09/17/17at 12: 54; Start 09/17/17 at 13:00 Prenat Multivit/ Head Teacher/Iron/Folic Ac (Multivitamin ) 1 tab DAILYBFRSUP PO Last administered on 09/20/17 07:36; Start 09/17/17 at 17:00 Atorvastatin Calcium (Lipitor) 20 mg QHS PO Last administered on 09/20/17at 19: 34; Start 09/17/17 at 21:00 Divalproex Sodium (Depakote Er) 500 mg QHS PO Last administered on 09/20/17 19 :35; Start 09/18/17 at 21:00 Active Scripts Active Reported Milk Of Magnesia (Magnesium Hydroxide) 2,400 Mg/10 Ml Oral.susp 2,400 Mg PO PRN QHS PRN Maalox Maximum Strength Susp (Mag Hydrox/Al Hydrox/Simeth) 355 Ml Oral.susp 15 Ml PO PRN AFTMEALHC PRN Acetaminophen 650 Mg/20.3 Ml Solution 650 Mg PO PRN Q6HRS PRN Atorvastatin Calcium 20 Mg Tablet 20 Mg PO QHS Zyprexa Zydis (Olanzapine) 5 Mg Tab.rapdis 2.5 Mg PO PRN Q2HR PRN Hydroxyzine Pamoate 25 Mg Capsule 25 Mg PO PRN Q2HR PRN Fluvoxamine Maleate 50 Mg Tablet 1 Tab PO QHS Vitamin D (Cholecalciferol (Vitamin D3)) 50,000 Unit Capsule 50,000 Unit PO WEEKLY Depakote Er (Divalproex Sodium) 500 Mg Tab.er.24h 1 Tab PO HS Vitamin Tablet ( Vit No.124/Iron/FA) 1 Each Tablet 1 Each PO DAILY Zoloft (Sertraline Hcl) 100 Mg Tablet 100 Mg PO DAILY Trazodone Hcl 50 Mg Tablet 50 Mg PO PRN QHS PRN Trazodone Hcl 50 Mg Tablet 50 Mg PO QHS Trazodone Hcl 50 Mg Tablet 25 Mg PO TIDWMEALS Seroquel (Quetiapine Fumarate) 400 Mg Tablet 400 Mg PO QHS Seroquel (Quetiapine Fumarate) 50 Mg Tablet 50 Mg PO DAILY I have reviewed the current psychotropics carefully including drug interactions. Risk benefit ratio favors no change other than as noted in my dictated progress note. Diagnosis: Problems: (1) Dementia with aggressive behavior (2) Anxiety disorder (3) Dementia in Alzheimer's disease with delusions (4) Dementia in Alzheimer's disease with depression (5) Dementia, vascular, with delusions (6) Dementia, vascular, with depression (7) Impulse control disorder KARSON DOWELL MD Sep 20, 2017 21:56
[2017-09-21 06:05] VITALS: BP 126/75
[2017-09-21] MEDS: traZODone 50 MG TABLET. PO SCH ×4 (07:28→20:00)
[2017-09-21] MEDS: QUEtiapine 50 MG TABLET. PO SCH (07:28)
[2017-09-21] MEDS: PRENATAL MULTIVITAMIN TABLET. PO SCH (07:29)
[2017-09-21 07:32] LABS: BASO % 1 % (0-3); EOS # 0.1 x10^3/uL (0.0-0.7); EOS % 2 % (0-3); HEMATOCRIT 41.5 % (39.0-53.0); LYMPH # 1.5 x10^3/uL (1.0-4.8); LYMPH % 21 % (24-48); MEAN CORPUSCULAR HEMOGLOBIN 29 pg (25-35); MEAN CORPUSCULAR HGB CONC 34 g/dL (31-37); MEAN CORPUSCULAR VOLUME 86 fL (79-100); MONO # 0.6 x10^3/uL (0.0-1.1); MONO % 8 % (0-9); NEUT # 4.9 x10^3uL (1.8-7.7); NEUT % 68 % (31-73); PLATELET COUNT 262 x10^3/uL (140-400); RED BLOOD COUNT 4.84 x10^6/uL (4.30-5.70); WHITE BLOOD COUNT 7.1 x10^3/uL (4.0-11.0)
[2017-09-21 07:54] LABS: ALBUMIN 3.5 g/dL (3.4-5.0); ALBUMIN/GLOBULIN RATIO 1.1 (1.0-1.7); ALK PHOS 82 U/L (46-116); ALT (SGPT) 18 U/L (16-63); ANION GAP 4 (6-14); AST (SGOT) 19 U/L (15-37); BLOOD UREA NITROGEN 20 mg/dL (8-26); BUN/CREATININE RATIO 17 (6-20); CALCIUM 8.8 mg/dL (8.5-10.1); CARBON DIOXIDE 34 mmol/L (21-32); CHLORIDE 107 mmol/L (98-107); CREATININE 1.2 mg/dL (0.7-1.3); GFR 61.8; GLUCOSE 103 mg/dL (70-99); POTASSIUM 4.2 mmol/L (3.5-5.1); SODIUM 145 mmol/L (136-145); TOTAL BILIRUBIN 0.4 mg/dL (0.2-1.0); TOTAL PROTEIN 6.6 g/dL (6.4-8.2)
[2017-09-21 07:55] LABS: VAL ACID 27 mcg/mL (50-100)
--- NOTE | 2017-09-21 09:52 | PN ---
DATE: 09/20/2017 This late entry 09/20/2017 covers elements not covered in my initial note 09/20/2017. Met with the patient evening of 09/20/2017. Per nursing report, the patient slapped himself only once and bent his glasses only twice the entire day, which is an improvement. Otherwise, remains confused, somewhat impulsive. REVIEW OF SYSTEMS: No CV, , eye, ENT or pulmonary system symptoms on review. Reliability poor. MENTAL STATUS EXAM: Oriented to himself. Insight, judgment, recent and remote memory, attention, concentration, fund of knowledge poor, consistent with his diagnosis mentioned in my initial note. IMPRESSION: Major neurocognitive disorder, Alzheimer, vascular with delusion, depression, behavioral disturbance. Rest unchanged. PLAN: Continue current psychotropics including Depakote. Check CBC, CMP, valproic acid level 09/22/2017. Adjust as clinically indicated. Maintain Luvox at current dosage. KARSON DOWELL MD DR: LAZARO/zia JOB#: [id number] / [id number]
--- NOTE | 2017-09-21 10:33 | PN ---
DATE: 09/19/2017 PSYCHIATRIC PROGRESS NOTE This late entry 09/19/2017 covers elements not covered in my initial note 09/19/2017. SUBJECTIVE: Met with the patient in the evening of 09/19/2017. Overall, the patient still slaps himself on the face, but less so than before. He did slap himself, made his nosebleed, twisted his glasses, little less intense. REVIEW OF SYSTEMS: No CV, , eye, ENT or pulmonary system symptoms on review. Reliability is poor. MENTAL STATUS EXAM: Oriented to himself. Insight, judgment, recent and remote memory, attention, concentration, fund of knowledge poor, consistent with his diagnoses mentioned in my initial note. IMPRESSION: Major neurocognitive disorder, Alzheimer, vascular with depression, delusion, behavioral disturbance. PLAN: Continue current psychotropics including the Luvox, which was initiated and we will start Depakote as a mood stabilizer. KARSON DOWELL MD DR: LAAZRO/zia JOB#: [id number] / [id number]
[2017-09-21 16:25] VITALS: BP 139/74
--- NOTE | 2017-09-21 19:28 | PDOC ---
Exam Note: Gerhard Note: Please also refer to the separate dictated note~for this date of service dictated separately.~Patient seen individually. Discussed the patient with Nursing staff reviewed the chart.~Reviewed interim history and current functioning. Reviewed vital signs,~Labs/ Radiology~and current medications noted below. Continue current treatment with the changes noted in the dictated addendum note Assessment: Vital Signs: Vital Signs Date Time Temp Pulse Resp B/P (MAP) Pulse Ox O2 Delivery O2 Flow Rate FiO2 09/21/17 16:25 98.2 87 20 139/74 (95) 98 09/18/17 16:23 Room Air I&O Intake and Output 09/21/17 07:00 Intake Total 860 ml Balance 860 ml Intake Oral 860 ml # Voids 1 Labs: Laboratory Tests Test 09/21/17 07:19 White Blood Count 7.1 x10^3/uL (4.0-11.0) Red Blood Count 4.84 x10^6/uL (4.30-5.70) Hemoglobin 14.0 g/dL (13.0-17.5) Hematocrit 41.5 % (39.0-53.0) Mean Corpuscular Volume 86 fL (79-100) Mean Corpuscular Hemoglobin 29 pg (25-35) Mean Corpuscular Hemoglobin Concent 34 g/dL (31-37) Red Cell Distribution Width 14.0 % (11.5-14.5) Platelet Count 262 x10^3/uL (140-400) Neutrophils (%) (Auto) 68 % (31-73) Lymphocytes (%) (Auto) 21 % (24-48) L Monocytes (%) (Auto) 8 % (0-9) Eosinophils (%) (Auto) 2 % (0-3) Basophils (%) (Auto) 1 % (0-3) Neutrophils # (Auto) 4.9 x10^3uL (1.8-7.7) Lymphocytes # (Auto) 1.5 x10^3/uL (1.0-4.8) Monocytes # (Auto) 0.6 x10^3/uL (0.0-1.1) Eosinophils # (Auto) 0.1 x10^3/uL (0.0-0.7) Basophils # (Auto) 0.0 x10^3/uL (0.0-0.2) Sodium Level 145 mmol/L (136-145) Potassium Level 4.2 mmol/L (3.5-5.1) Chloride Level 107 mmol/L (98-107) Carbon Dioxide Level 34 mmol/L (21-32) H Anion Gap 4 (6-14) L Blood Urea Nitrogen 20 mg/dL (8-26) Creatinine 1.2 mg/dL (0.7-1.3) Estimated GFR (Cockcroft-Gault) 61.8 BUN/Creatinine Ratio 17 (6-20) Glucose Level 103 mg/dL (70-99) H Calcium Level 8.8 mg/dL (8.5-10.1) Total Bilirubin 0.4 mg/dL (0.2-1.0) Aspartate Amino Transferase (AST) 19 U/L (15-37) Alanine Aminotransferase (ALT) 18 U/L (16-63) Alkaline Phosphatase 82 U/L (46-116) Total Protein 6.6 g/dL (6.4-8.2) Albumin 3.5 g/dL (3.4-5.0) Albumin/Globulin Ratio 1.1 (1.0-1.7) Valproic Acid Level 27 mcg/mL (50-100) L Valproic Acid Last Dose Date 09/20/17 Valproic Acid Last Dose Time 2100 Current Medications: Meds: Current Medications Quetiapine Fumarate (SEROquel) 50 mg DAILY PO Last administered on 09/21/17at 07 :28; Start 09/16/17 at 09:00 Sertraline HCl (Zoloft) 100 mg DAILY PO Last administered on 09/16/17at 08:02; Start 09/16/17 at 09:00; Stop 09/16/17 at 19:21; Status DC Trazodone HCl (Desyrel) 25 mg TIDWMEALS PO Last administered on 09/21/17at 18:59 ; Start 09/16/17 at 08:00 Trazodone HCl (Desyrel) 50 mg PRN QHS PRN PO INSOMNIA; Start 09/15/17 at 20:15 Trazodone HCl (Desyrel) 50 mg QHS PO Last administered on 09/20/17at 19:35; Start 09/15/17 at 21:00 Quetiapine Fumarate (SEROquel) 400 mg HS PO Last administered on 09/20/17 19: 34; Start 09/15/17 at 21:00 Olanzapine (ZyPREXA ZYDIS) 2.5 mg PRN Q2HR PRN PO PSYCHOSIS Last administered on 09/20/17 19:38; Start 09/15/17 at 21:00 Hydroxyzine Pamoate (Vistaril) 25 mg PRN Q2HR PRN PO Anxiety/Agitation Last administered on 09/18/17 16:13; Start 09/15/17 at 22:00 Al Hydroxide/Mg Hydroxide (Mylanta Plus Xs) 30 ml PRN Q2HR PRN PO DYSPEPSIA; Start 09/16/17 at 08:00 Magnesium Hydroxide (Milk Of Magnesia) 2,400 mg PRN DAILY PRN PO CONSTIPATION Last administered on 09/16/17 08:03; Start 09/16/17 at 08:00 Acetaminophen (Tylenol) 650 mg PRN Q6HRS PRN PO PAIN / TEMP; Start 09/16/17 at 08:00 Fluvoxamine Maleate (Luvox) 25 mg HS PO Last administered on 09/17/17 19:46; Start 09/16/17 at 21:00; Stop 09/18/17 at 00:00; Status DC Fluvoxamine Maleate (Luvox) 50 mg HS PO Last administered on 09/20/17 19:34; Start 09/18/17 at 21:00 Vitamin D (Vitamin D3) 50,000 unit WEEKLY PO Last administered on 09/17/17at 12: 54; Start 09/17/17 at 13:00 Prenat Multivit/ Spice Cleaner/Iron/Folic Ac (Multivitamin ) 1 tab DAILYBFRSUP PO Last administered on 09/21/17 07:29; Start 09/17/17 at 17:00 Atorvastatin Calcium (Lipitor) 20 mg QHS PO Last administered on 09/20/17 19: 34; Start 09/17/17 at 21:00 Divalproex Sodium (Depakote Er) 500 mg QHS PO Last administered on 09/20/17 19 :35; Start 09/18/17 at 21:00; Stop 09/21/17 at 18:29; Status DC Divalproex Sodium (Depakote Er) 1,000 mg QHS PO ; Start 09/21/17 at 21:00 Active Scripts Active Reported Milk Of Magnesia (Magnesium Hydroxide) 2,400 Mg/10 Ml Oral.susp 2,400 Mg PO PRN QHS PRN Maalox Maximum Strength Susp (Mag Hydrox/Al Hydrox/Simeth) 355 Ml Oral.susp 15 Ml PO PRN AFTMEALHC PRN Acetaminophen 650 Mg/20.3 Ml Solution 650 Mg PO PRN Q6HRS PRN Atorvastatin Calcium 20 Mg Tablet 20 Mg PO QHS Zyprexa Zydis (Olanzapine) 5 Mg Tab.rapdis 2.5 Mg PO PRN Q2HR PRN Hydroxyzine Pamoate 25 Mg Capsule 25 Mg PO PRN Q2HR PRN Fluvoxamine Maleate 50 Mg Tablet 1 Tab PO QHS Vitamin D (Cholecalciferol (Vitamin D3)) 50,000 Unit Capsule 50,000 Unit PO WEEKLY Depakote Er (Divalproex Sodium) 500 Mg Tab.er.24h 1 Tab PO HS Vitamin Tablet ( Vit No.124/Iron/FA) 1 Each Tablet 1 Each PO DAILY Zoloft (Sertraline Hcl) 100 Mg Tablet 100 Mg PO DAILY Trazodone Hcl 50 Mg Tablet 50 Mg PO PRN QHS PRN Trazodone Hcl 50 Mg Tablet 50 Mg PO QHS Trazodone Hcl 50 Mg Tablet 25 Mg PO TIDWMEALS Seroquel (Quetiapine Fumarate) 400 Mg Tablet 400 Mg PO QHS Seroquel (Quetiapine Fumarate) 50 Mg Tablet 50 Mg PO DAILY I have reviewed the current psychotropics carefully including drug interactions. Risk benefit ratio favors no change other than as noted in my dictated progress note. Diagnosis: Problems: (1) Dementia with aggressive behavior (2) Anxiety disorder (3) Dementia in Alzheimer's disease with delusions (4) Dementia in Alzheimer's disease with depression (5) Dementia, vascular, with delusions (6) Dementia, vascular, with depression (7) Impulse control disorder KARSON DOWELL MD Sep 21, 2017 19:28
[2017-09-21] MEDS: QUEtiapine 100 MG TABLET. PO SCH (19:59)
[2017-09-21] MEDS: ATORVASTATIN CALCIUM 20 MG TABLET PO SCH (19:59)
[2017-09-21] MEDS ORDERED: DIVALPROEX ER 500 MG TAB.ER.24H PO SCH (21:00)
[2017-09-22 06:50] VITALS: BP 100/56
[2017-09-22] MEDS: traZODone 50 MG TABLET. PO SCH ×2 (08:28→12:30)
[2017-09-22] MEDS: QUEtiapine 50 MG TABLET. PO SCH (08:28)
[2017-09-22 15:47] VITALS: BP 151/64
--- NOTE | 2017-09-22 18:40 | PDOC ---
Exam Note: Gerhard Note: Please also refer to the separate dictated note~for this date of service dictated separately.~Patient seen individually. Discussed the patient with Nursing staff reviewed the chart.~Reviewed interim history and current functioning. Reviewed vital signs,~Labs/ Radiology~and current medications noted below. Continue current treatment with the changes noted in the dictated addendum note Assessment: Vital Signs: Vital Signs Date Time Temp Pulse Resp B/P (MAP) Pulse Ox O2 Delivery O2 Flow Rate FiO2 09/22/17 15:47 98.9 97 18 151/64 (93) 96 09/18/17 16:23 Room Air I&O Intake and Output 09/22/17 07:00 Intake Total 840 ml Balance 840 ml Intake Oral 840 ml # Voids 1 # Bowel Movements 1 Current Medications: Meds: Current Medications Quetiapine Fumarate (SEROquel) 50 mg DAILY PO Last administered on 09/22/17at 08 :28; Start 09/16/17 at 09:00; Stop 09/22/17 at 16:35; Status DC Sertraline HCl (Zoloft) 100 mg DAILY PO Last administered on 09/16/17at 08:02; Start 09/16/17 at 09:00; Stop 09/16/17 at 19:21; Status DC Trazodone HCl (Desyrel) 25 mg TIDWMEALS PO Last administered on 09/22/17at 12:30 ; Start 09/16/17 at 08:00; Stop 09/22/17 at 16:35; Status DC Trazodone HCl (Desyrel) 50 mg PRN QHS PRN PO INSOMNIA; Start 09/15/17 at 20:15 ; Stop 09/22/17 at 16:35; Status DC Trazodone HCl (Desyrel) 50 mg QHS PO Last administered on 09/21/17at 20:00; Start 09/15/17 at 21:00; Stop 09/22/17 at 16:35; Status DC Quetiapine Fumarate (SEROquel) 400 mg HS PO Last administered on 09/21/17at 19: 59; Start 09/15/17 at 21:00; Stop 09/22/17 at 16:35; Status DC Olanzapine (ZyPREXA ZYDIS) 2.5 mg PRN Q2HR PRN PO PSYCHOSIS Last administered on 09/20/17at 19:38; Start 09/15/17 at 21:00; Stop 09/22/17 at 16:35; Status DC Hydroxyzine Pamoate (Vistaril) 25 mg PRN Q2HR PRN PO Anxiety/Agitation Last administered on 09/18/17at 16:13; Start 09/15/17 at 22:00; Stop 09/22/17 at 16:35 ; Status DC Al Hydroxide/Mg Hydroxide (Mylanta Plus Xs) 30 ml PRN Q2HR PRN PO DYSPEPSIA; Start 09/16/17 at 08:00; Stop 09/22/17 at 16:35; Status DC Magnesium Hydroxide (Milk Of Magnesia) 2,400 mg PRN DAILY PRN PO CONSTIPATION Last administered on 09/16/17at 08:03; Start 09/16/17 at 08:00; Stop 09/22/17 at 16:35; Status DC Acetaminophen (Tylenol) 650 mg PRN Q6HRS PRN PO PAIN / TEMP; Start 09/16/17 at 08:00; Stop 09/22/17 at 16:35; Status DC Fluvoxamine Maleate (Luvox) 25 mg HS PO Last administered on 09/17/17at 19:46; Start 09/16/17 at 21:00; Stop 09/18/17 at 00:00; Status DC Fluvoxamine Maleate (Luvox) 50 mg HS PO Last administered on 09/21/17at 20:03; Start 09/18/17 at 21:00; Stop 09/22/17 at 16:35; Status DC Vitamin D (Vitamin D3) 50,000 unit WEEKLY PO Last administered on 09/17/17at 12: 54; Start 09/17/17 at 13:00; Stop 09/22/17 at 16:35; Status DC Prenat Multivit/ [employer] Recruitment Representative/Iron/Folic Ac (Multivitamin ) 1 tab DAILYBFRSUP PO Last administered on 09/21/17at 07:29; Start 09/17/17 at 17:00; Stop at 16:35; Status DC Atorvastatin Calcium (Lipitor) 20 mg QHS PO Last administered on 09/21/17at 19: 59; Start 09/17/17 at 21:00; Stop 09/22/17 at 16:35; Status DC Divalproex Sodium (Depakote Er) 500 mg QHS PO Last administered on 09/20/17at 19 :35; Start 09/18/17 at 21:00; Stop 09/21/17 at 18:29; Status DC Divalproex Sodium (Depakote Er) 1,000 mg QHS PO Last administered on 09/21/17at 20:03; Start 09/21/17 at 21:00; Stop 09/22/17 at 16:35; Status DC Active Scripts Active Reported Milk Of Magnesia (Magnesium Hydroxide) 2,400 Mg/10 Ml Oral.susp 2,400 Mg PO PRN QHS PRN Maalox Maximum Strength Susp (Mag Hydrox/Al Hydrox/Simeth) 355 Ml Oral.susp 15 Ml PO PRN AFTMEALHC PRN Acetaminophen 650 Mg/20.3 Ml Solution 650 Mg PO PRN Q6HRS PRN Atorvastatin Calcium 20 Mg Tablet 20 Mg PO QHS Zyprexa Zydis (Olanzapine) 5 Mg Tab.rapdis 2.5 Mg PO PRN Q2HR PRN Hydroxyzine Pamoate 25 Mg Capsule 25 Mg PO PRN Q2HR PRN Fluvoxamine Maleate 50 Mg Tablet 1 Tab PO QHS Vitamin D (Cholecalciferol (Vitamin D3)) 50,000 Unit Capsule 50,000 Unit PO WEEKLY Depakote Er (Divalproex Sodium) 500 Mg Tab.er.24h 1,000 Mg PO HS Vitamin Tablet ( Vit No.124/Iron/FA) 1 Each Tablet 1 Each PO DAILY Trazodone Hcl 50 Mg Tablet 50 Mg PO QHS Trazodone Hcl 50 Mg Tablet 25 Mg PO TIDWMEALS Seroquel (Quetiapine Fumarate) 400 Mg Tablet 400 Mg PO QHS Seroquel (Quetiapine Fumarate) 50 Mg Tablet 50 Mg PO DAILY I have reviewed the current psychotropics carefully including drug interactions. Risk benefit ratio favors no change other than as noted in my dictated progress note. Diagnosis: Problems: (1) Impulse control disorder (2) Dementia, vascular, with depression (3) Dementia, vascular, with delusions (4) Dementia in Alzheimer's disease with depression (5) Dementia in Alzheimer's disease with delusions (6) Anxiety disorder KARSON DOWELL MD Sep 22, 2017 18:40
--- NOTE | 2017-09-23 09:53 | PN ---
DATE: 09/21/2017 This late entry, 09/21/2017, covers elements not covered in my initial note of 09/21/2017. SUBJECTIVE: I met with the patient the evening of 09/21/2017. Overall, the patient is less labile. He stopped bending his glasses, only did it once during the day 09/21, still talking to himself, possibly hallucinating. Mood lability somewhat improved. REVIEW OF SYSTEMS: No CV, , pulmonary, eye, ENT system symptoms on review. Reliability poor. MENTAL STATUS EXAM: Oriented to himself. Insight, judgment, recent and remote memory, attention, concentration, fund of knowledge poor, consistent with his diagnosis mentioned in my initial note. IMPRESSION: Major neurocognitive disorder, Alzheimer, vascular with depression, delusion. Rest unchanged. PLAN: Valproic acid level on 09/21 is 27, on Depakote ER 500 mg at bedtime. We will increase this to 1000 mg at bedtime. Check CBC, CMP, valproic acid level in 3 days. Continue rest unchanged including the Luvox, which is increased to 50 mg a day. MAN Jose G DOWELL MD DR: LAZARO/zia JOB#: [id number] / [id number]
--- NOTE | 2017-09-24 01:42 | DS ---
DATE OF DISCHARGE: 09/22/2017 PSYCHIATRIC DISCHARGE SUMMARY This is a late entry, date of service 09/22/2017, covers elements not covered in my initial note of 09/22/2017. REASON FOR ADMISSION: Please refer to the admission history for details. Briefly, the patient is a 62-year-old male referred to us from [facility] where he was admitted very briefly with early onset dementia, marked agitation, aggression. He was delusional that his hands are not his. The right hand is called Chad, the left is called Mario, and they are beating him up. He would hit himself, twist his glasses, punch himself on the face, attempted to smother himself with a pillow. He had failed prior inpatient psychiatric hospitalizations as well. Behaviors were deemed dangerous, out of control, unmanageable at the [facility] resulting in this referral. SIGNIFICANT FINDINGS AND CLINICAL COURSE: Following admission, the patient was seen daily individually by myself, followed medically per Dr. Simpson/Dr. Pinto. I talked to the patient's at length following his admission to gather his fairly significant psychiatric history and past treatments. He was quite obsessive, compulsive, repetitive, and additionally was psychotic. Adjustments were made in his psychotropics. Depakote was initiated as a mood stabilizer. With Depakote ER 500 mg at bedtime, level was subtherapeutic and prior to discharge it was increased to 1000 mg p.o. at bedtime with CBC, CMP, valproic acid level due in 3 days. He was also on Seroquel 50 mg daily, 400 mg at bedtime, which he was taking prior to admission, trazodone 25 mg t.i.d. with meals, and Luvox initiated 25 mg at bedtime increasing to 50 mg at bedtime, Zyprexa p.r.n., trazodone 50 mg at bedtime p.r.n. insomnia, may repeat x 1. Prior to discharge, the patient's impulsive behaviors, hitting himself, striking himself twisting his glasses were significantly improved. REVIEW OF SYSTEMS: No CV, , pulmonary, eye, ENT system symptoms on review. Reliability is poor. MENTAL STATUS EXAM: Oriented to himself. Insight, judgment, recent and remote memory, attention, concentration, fund of knowledge poor, consistent with his diagnoses mentioned in initial note: IMPRESSION: Major neurocognitive disorder, vascular with depression, delusion, behavioral disturbance; anxiety disorder, unspecified; impulse control disorder, unspecified. Rest unchanged from admission. DISCHARGE MEDICATIONS: Please refer to the EMRAD. DISCHARGE INSTRUCTIONS: Outpatient psychiatric and medical followup at the [facility]. Time for discharge day management is greater than 30 minutes. KARSON DOWELL MD DR: LAZARO/zia JOB#: [id number] / [id number]
== END 2017-09-22 16:33 | disposition home or self-care (01) | DRG 884 ==
LOC: ER 15:59 → GEROPSY 19:15
PROVIDERS: ADMIT Psychiatry & Neurology Psychiatry; ATTEND Psychiatry & Neurology Psychiatry
DX: F01.51 Vascular dementia, unspecified severity, with behavioral disturbance (principal); G30.0 Alzheimer's disease with early onset; F02.81 Dementia in other diseases classified elsewhere, unspecified severity, with behavioral disturbance; R47.01 Aphasia; E78.00 Pure hypercholesterolemia, unspecified; E78.5 Hyperlipidemia, unspecified; F22 Delusional disorders; F32.9 Major depressive disorder, single episode, unspecified; F41.9 Anxiety disorder, unspecified; F42.9 Obsessive-compulsive disorder, unspecified; K59.00 Constipation, unspecified; F63.9 Impulse disorder, unspecified; R04.0 Epistaxis; Z66 Do not resuscitate; Z90.49 Acquired absence of other specified parts of digestive tract
CPT/HCPCS: 36415; 74018; 80053; 80061; 80164; 81001; 82306; 82607; 83036; 83540; 83550; 83735; 84436; 84443; 84480; 85025; 86593; 93005; Q0177; 99285-25